=== PATIENT | male | born 1975 ===

== ENCOUNTER 2021-02-06 09:54 | Emergency (ER) ==
[2021-02-06] MEDS ORDERED: Dexamethasone 10 MG/ML VIAL ONE (11:14)
[2021-02-06] MEDS ORDERED: diphenhydrAMINE 25 MG CAP ONE (11:14)
== END 2021-02-06 11:39 | disposition home or self-care (01) ==
LOC: ERS 09:54
DX: L23.7 Allergic contact dermatitis due to plants, except food (principal)
CPT/HCPCS: 96372; 99282; J1100; Q0163

== ENCOUNTER 2021-07-28 05:55 | Emergency (ER) | payer SELFPAY ==
[2021-07-28] MEDS ORDERED: Dexamethasone 10 MG/ML VIAL ONE (06:16)
== END 2021-07-28 06:32 | disposition home or self-care (01) ==
LOC: ERS 05:55
DX: K12.2 Cellulitis and abscess of mouth (principal)
CPT/HCPCS: 99283; J1100